=== PATIENT | male | born 2005 | race Caucasian/White ===

== ENCOUNTER → 2024-06-11 13:33 | Outpatient (BNVA) | payer OTHER, SELFPAY | PROVIDERS: Family Provider Nurse Practitioner Family; PCP Nurse Practitioner Family; Visit Provider Podiatrist Foot & Ankle Surgery | DX: M25.572 Pain in left ankle and joints of left foot (principal); M79.672 Pain in left foot; M72.2 Plantar fascial fibromatosis | CPT/HCPCS: 73610; 73630 ==

== ENCOUNTER 2024-11-14 11:22 | Outpatient (CLI) | payer MEDICAID, SELFPAY ==
--- NOTE | 2024-11-14 11:26 | XR_ITS ---
WS: [id number] XR cervical spine 3V* [id number] REASON FOR EXAM: M25.50 - Pain in unspecified joint FINDINGS: Straightening of the normal lordosis of the cervical spine. Slight dextroscoliosis. Normal odontoid. Normal vertebral bodies. Normal intervertebral disc spaces. Normal alignment of the facet joints. XR/XR cervical spine 3V* [id number] IMPRESSION: Mild alteration of cervical spine curvatures which could be due to muscle spasm . No bone or disc space abnormality.
--- NOTE | 2024-11-14 11:26 | XR_ITS ---
WS: [id number] XR lumbar spine 2-3V* [id number] REASON FOR EXAM: M25.50 - Pain in unspecified joint FINDINGS: Normal lumbar spine curvature. Normal vertebral bodies. Normal intervertebral disc spaces. No spondylolysis or significant spondylolisthesis. Sacroiliac joints appear normal. XR/XR lumbar spine 2-3V* [id number] IMPRESSION: No significant abnormality.
--- NOTE | 2024-11-14 11:26 | XR_ITS ---
WS: [id number] XR thoracic spine 3V* [id number] REASON FOR EXAM: M25.50 - Pain in unspecified joint FINDINGS: Normal thoracic spine curvatures. Normal thoracic vertebrae. Normal intervertebral disc spaces. XR/XR thoracic spine 3V* [id number] IMPRESSION: No significant abnormality.
== END 2024-11-14 11:23 | disposition home or self-care (01) ==
LOC: RAD 11:24
PROVIDERS: PCP Nurse Practitioner; Visit Provider Nurse Practitioner
DX: M25.50 Pain in unspecified joint (principal); M43.8X2 Other specified deforming dorsopathies, cervical region
CPT/HCPCS: 72040; 72072; 72100

== ENCOUNTER 2024-12-04 09:30 | Outpatient (CLI) | payer MEDICAID, SELFPAY ==
[2024-12-04 10:24] LABS: Erythrocyte Sedimentation Rate 10 mm/hr (0-10)
[2024-12-04 10:55] LABS: C Reactive Protein 24.6 mg/L (0.0-4.9)
[2024-12-04 11:11] LABS: 25 Hydroxy Vitamin D 25 ng/mL (30-100)
== END 2024-12-04 09:31 | disposition home or self-care (01) ==
LOC: LAB 09:32
PROVIDERS: PCP Nurse Practitioner; Visit Provider Nurse Practitioner
DX: E55.9 Vitamin D deficiency, unspecified (principal); M25.50 Pain in unspecified joint
CPT/HCPCS: 36415; 82306; 85651; 86140

== ENCOUNTER → 2025-04-16 11:11 | Outpatient (BNVA) | payer MEDICAID, SELFPAY | PROVIDERS: PCP Nurse Practitioner; Referring Provider Nurse Practitioner; Visit Provider Internal Medicine Rheumatology | DX: M25.50 Pain in unspecified joint (principal) | CPT/HCPCS: 36415; 80076; 82306; 82565; 83520; 85025; 85651; 86140; 86480; 86704; 86803; 87340 ==